=== PATIENT | male | born 1980 | race Caucasian/White ===

== ENCOUNTER 2022-02-20 19:04 | Emergency (ER) | payer BC, SELFPAY ==
[2022-02-20 19:07] VITALS: BP 114/72; PULSE 90; RESP 20; TEMP 36.9; O2SAT 100
--- NOTE | 2022-02-20 19:29 | ECG_ITS ---
Measurements Intervals [place] Rate: 90 P: 51 SD: 137 QRS: 50 QRSD: 85 T: 43 QT: 332 QTc: 406 Interpretive Statements SINUS RHYTHM ST ELEVATION, PROBABLY EARLY REPOLARIZATION [ST ELEVATION WITH NORMALLY INFLECTED T WAVE] NORMAL ECG NO PREVIOUS ECG AVAILABLE FOR COMPARISON Electronically Signed On 02-21-2022 14:33:31 CDT by Jayson Hernandez M.D.
--- NOTE | 2022-02-20 19:29 | ED.GENADULT ---
HPI - General Adult General Chief complaint: Environmental Exposure <PADMINI Gusman Last Filed: 02/24/22 23:14> Stated complaint: OVERHEATED <PADMINI Gusman Last Filed: 02/24/22 23:14> Time Seen by Provider: 02/20/22 19:24 <PADMINI Gusman Last Filed: 02/24/22 23:14> History of Present Illness HPI narrative: 41-year-old male here for evaluation of near syncope earlier today. 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 He states that he felt very dizzy, lightheaded, but did not pass out. He called an ambulance and came straight to the emergency department. 1 L of fluids in route and now feels better, but is still having severe muscle cramping in his bilateral calves and upper arms. He denies chest pain, palpitations, loss of consciousness, head injury, headache. He does take atorvastatin for high cholesterol and lisinopril for hypertension but takes no other medications. <PADMINI Gusman Last Filed: 02/24/22 23:14> Related Data Home medications: Home Medications Medication Instructions Recorded Confirmed atorvastatin 40 mg tablet 40 mg PO DAILY 02/20/22 02/20/22 dexlansoprazole 60 mg 60 mg PO DAILY 02/20/22 02/20/22 capsule,biphase delayed release fluticasone propionate 50 1 spray intranasal DAILY 02/20/22 02/20/22 mcg/actuation nasal spray,suspension lisinopril 10 mg tablet 1 tablet PO DAILY 02/20/22 02/20/22 <PADMINI Gusman Last Filed: 02/24/22 23:14> Allergies/adverse reactions: Allergies Allergy/AdvReac Type Severity Reaction Status Date / Time No Known Allergies Allergy Unverified 02/20/22 19:25 <PADMINI Gusman Last Filed: 02/24/22 23:14> Review of Systems Review of Systems: Gen.: Reports near syncope Eyes: Denies eye pain or visual change ENT: Denies congestion Respiratory: Denies shortness of breath or cough CV: Denies chest pain or palpitations GI: Denies abdominal pain nausea, emesis or diarrhea denies burning, urgency, frequency or hematuria Musculoskeletal: Reports muscle cramping Neuro: Denies numbness, tingling, weakness or focal weakness Skin: Denies rash Except as documented, all other systems reviewed and negative <Madelyn Whitney PA-C - Last Filed: 02/24/22 23:14> Exam Narrative: APPEARANCE: Well appearing, no pain in distress, well-nourished. Head: normocephalic and atraumatic. EYES: PERRLA/EOMI, conjunctivae clear NOSE: No nasal drainage EARS: External ear normal in appearance THROAT: Oropharynx is clear. Mucous membranes are moist. NECK: Supple. No adenopathy, no masses. RESPIRATORY: Airway patent, respirations nonlabored. Clear to auscultation bilaterally, no rales, rhonchi, wheezing. CARDIOVASCULAR: Regular rate and rhythm without murmurs, rubs, or gallops. ABDOMINAL: Normoactive bowel sounds. Soft, nontender, nondistended. No rebound tenderness or guarding. MUSCULOSKELETAL: No calf tenderness bilaterally. Extremities are warm and well-perfused. Moves all extremities well. No edema. NEURO: Normal speech. No focal neurologic deficits. SKIN: Skin is warm and dry. No rashes. PSYCHIATRIC: Normal affect/mood. 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 Pt given 2 L IV fluids in the ED and case discussed with hospitalist. Dr. Ridley asking for repeat Cr level. Repeat level downtrending. Will arrange for close outpatient follow up and advised pt continue to hydrate aggressively. Lab work not consistent with rhabdomyolysis. Pt improved with aggressive IV rehydration. For this patient encounter, I reviewed the SLICING MACHINE TENDER or PA documentation, treatment plan, and medical decision making; and I had [id number] time with this patient. <Gomez
[2022-02-20] MEDS: SODIUM CHLORIDE 0.9% IV 1,000 ML 999 ML IV CONT (19:53)
[2022-02-20 20:43] LABS: Basophils Absolute Auto 0.1 K/mm3 (0.0-0.1); Basophils Percent Auto 0.4 % (0.2-1.2); Eosinophils Absolute Auto 0.1 K/mm3 (0-0.3); Eosinophils Percent Auto 0.4 % (0-4.4); Hematocrit 44.7 % (42.0-52.0); Hemoglobin 15.5 g/dL (14.0-18.0); Immature Granulocyte Absolute 0.12 K/mm3 (0.00-0.031); Immature Granulocyte Percent A 0.8 % (0-0.5); Lymphocytes Absolute Auto 1.51 K/mm3 (0.9-3.2); Lymphocytes Percent Auto 10.2 % (18.3-44.2); Mean Corpuscular HGB Conc 34.7 g/dl (32-36); Mean Corpuscular Hemoglobin 31.9 pg (26-34); Mean Platelet Volume 9.6 fl (7.4-10.4); Monocytes Absolute Auto 1.2 K/mm3 (0.1-0.6); Monocytes Percent Auto 7.8 % (2.6-8.5); Neutrophils Absolute Auto 11.9 K/mm3 (1.3-6.7); Neutrophils Percent Auto 80.4 % (45.5-73.1); Platelet Count Result 196 k/mm3 (150-375); Red Blood Count 4.86 M/mm3 (4.6-6.20); Red Cell Distribution Width 12.6 % (11.5-14.5); White Blood Count 14.8 K/mm3 (4.5-10.0)
[2022-02-20 20:54] LABS: Alanine Aminotransferase 34 U/L (6-50); Albumin Level 4.4 g/dL (3.5-5.1); Alkaline Phosphatase 66 U/L (38-126); Anion Gap 7 mmol/L (8-16); Aspartate Amino Transferase 32 U/L (17-59); Bilirubin,Total 0.9 mg/dL (0.2-1.3); Blood Urea Nitrogen 24 mg/dL (9-20); Calcium 8.9 mg/dL (8.4-10.2); Carbon Dioxide 26 mmol/L (22-30); Chloride 103 mmol/L (98-107); Creatine Kinase 252 U/L (55-170); Estimated CRCL calculation 53 ml/min; Estimated Glomerular Filt Rate 39; Glucose 91 mg/dL (65-110); Potassium 4.7 mmol/L (3.4-5.0); Sodium 136 mmol/L (137-145)
[2022-02-20 21:35] VITALS: BP 119/79; PULSE 69; RESP 20; O2SAT 99
[2022-02-20 22:05] LABS: Appearance Urine Clear (Clear); Bilirubin Urine Negative (Negative); Blood Urine 1+ (Negative); Color Urine Yellow (Yellow); Glucose Urine UA Negative (Negative); Ketones Urine Negative (Negative); Leukocyte Esterase Ur Negative LEU/UL (Negative); Nitrate Urine Negative (Negative); Protein Urine Negative (Negative); Specific Grav Ur <= 1.005 (1.001-1.035); Urobilinogen Urine 0.2 mg/dL (<2.0); pH Urine 5.5 (5.0-9.0)
[2022-02-20 22:08] LABS: Add Urine Microscopic? YES; RBC Urine 0-2 /hpf (0-2); Squamous Epithelial Cell Urine Rare /hpf (Few); WBC Urine 0-3 /hpf
[2022-02-20 23:42] VITALS: BP 118/74; O2SAT 95
[2022-02-20 23:46] VITALS: BP 132/80
[2022-02-21 00:01] VITALS: BP 121/82; PULSE 87; RESP 18; O2SAT 97
[2022-02-21] MEDS: SODIUM CHLORIDE 0.9% IV 1,000 ML 150 ML IV CONT (00:50)
[2022-02-21 00:54] LABS: Anion Gap 8 mmol/L (8-16); Blood Urea Nitrogen 21 mg/dL (9-20); Calcium 9.4 mg/dL (8.4-10.2); Carbon Dioxide 25 mmol/L (22-30); Chloride 102 mmol/L (98-107); Estimated CRCL calculation 62 ml/min; Estimated Glomerular Filt Rate 48; Glucose 116 mg/dL (65-110); Potassium 4.6 mmol/L (3.4-5.0); Sodium 135 mmol/L (137-145)
[2022-02-21 01:15] VITALS: BP 119/80; PULSE 78; RESP 18; O2SAT 98
== END 2022-02-21 01:50 | disposition home or self-care (01) ==
PROVIDERS: Physician Assistant; Emergency Provider Emergency Medicine; PCP Internal Medicine
DX: R94.4 Abnormal results of kidney function studies (principal)
CPT/HCPCS: 36415; 80048; 80053; 81001; 82550; 85025; 93005; 96360; 96361; 99283; J7030